=== PATIENT | male | born 1960 | race Caucasian/White ===

== ENCOUNTER 2017-05-24 11:08 | Observation (INO) | payer BC ==
[2017-05-24] VITALS (8 sets, daily range): BP systolic 125–148; BP diastolic 78–96
[2017-05-24 11:28] LABS: BASOPHILS % (AUTO) 1.5 % (0.0-5.0); EOSINOPHILS % (AUTO) 3.4 % (0.0-8.0); MEAN CORPUSCULAR HEMOGLOBIN 31.2 pg (27.0-33.0); MEAN CORPUSCULAR HGB CONC 33.9 g/dL (32.0-36.0); MEAN CORPUSCULAR VOLUME 91.8 fL (79-99); MONOCYTES % (AUTO) 12.7 % (3.0-13.0); NEUTROPHILS % (AUTO) 57.4 % (40.0-77.0); NUCLEATED RED BLOOD CELLS 0.1 % (0.0-0.19); PLATELET COUNT (AUTO) 235 K/uL (130-400); RED BLOOD CELL COUNT(AUTO) 5.33 MIL/uL (4.50-6.20); RED CELL DISTRIBUTION WIDTH 13.6 % (11.0-15.5); WHITE BLOOD COUNT (AUTO) 7.6 K/uL (4.8-10.8)
[2017-05-24 11:39] LABS: CREATININE 1.3 mg/dL (0.5-1.5); POTASSIUM 4.7 mmol/L (3.5-5.1)
[2017-05-24 11:51] LABS: ALBUMIN 4.2 g/dL (3.5-5.0); BILIRUBIN,TOTAL 0.9 mg/dL (0.2-1.0); MAGNESIUM 2.1 mg/dL (1.80-2.40); THYROID STIMULATING HORMONE 3.87 uIU/mL (0.36-3.74); TOTAL PROTEIN, SERUM 7.4 g/dL (6.0-8.3)
[2017-05-24 11:59] LABS: INR 1.02 (0.85-1.15); PARTIAL THROMBOPLASTIN TIME 27.2 SEC (26.3-35.5); PROTHROMBIN TIME 10.7 SEC (9.6-11.6)
[2017-05-24] MEDS ORDERED: MORPHINE SULFATE 4 MG/1ML SYG IV PRN (12:00)
[2017-05-24] MEDS ORDERED: LIDOCAINE HCL-MPF 1% 2ML VIAL IVP PRN (12:00)
[2017-05-24] MEDS ORDERED: POTASSIUM CHLORIDE 20MEQ/100ML 100 ML IV PRN (12:00)
[2017-05-24] MEDS ORDERED: MORPHINE SULFATE 2 MG/ML 1ML SYG IV PRN (12:00)
[2017-05-24] MEDS ORDERED: MAG HYDROX/AL HYDROX/SIMETH ES 30 ML SUSP UDCUP PO PRN (12:00)
[2017-05-24] MEDS ORDERED: POTASSIUM CHLORIDE 10% ELIXIR 20 MEQ/15 ML UDCUP PO PRN (12:00)
[2017-05-24] MEDS ORDERED: POTASSIUM CHLORIDE 20 MEQ ERTAB PO PRN (12:00)
[2017-05-24] MEDS ORDERED: HYDRALAZINE HCL 20 MG/ML VIAL IV PRN (12:00)
[2017-05-24] MEDS ORDERED: LACTULOSE 20 GM/30 ML UDCUP PO PRN (12:00)
[2017-05-24] MEDS ORDERED: ONDANSETRON HCL 4 MG/2 ML VIAL IV PRN (12:00)
[2017-05-24] MEDS ORDERED: GUAIFENESIN-DM 200/20 MG 10 ML PO PRN (12:00)
[2017-05-24] MEDS ORDERED: NITROGLYCERIN 0.4 MG SL TAB SL PRN (12:00)
[2017-05-24] MEDS ORDERED: ACETAMINOPHEN 325 MG TAB PO PRN ×3 (12:00→18:00)
[2017-05-24] MEDS ORDERED: FAMOTIDINE/PF 20 MG/2 ML VIAL IV ONE (12:15)
[2017-05-24] MEDS ORDERED: ASPIRIN 325 MG TABLET ONE (12:55)
[2017-05-24] MEDS ORDERED: ISOVUE-370 50ML VIAL IV ONE ×2 (13:22→15:08)
[2017-05-24] MEDS ORDERED: IOPAMIDOL-370 100 ML VIAL IV ONE (13:22)
[2017-05-24] MEDS ORDERED: NITROGLYCERIN 5 MG/ML 10 ML VIAL IV ONE (13:22)
[2017-05-24] MEDS ORDERED: LIDOCAINE HCL 2% 20ML ONE (13:23)
[2017-05-24 13:40] LABS: CREATINE KINASE MB 1.4 ng/mL (0.5-3.6); TROPONIN I 0.33 ng/mL (0.00-0.06)
[2017-05-24] MEDS ORDERED: SODIUM CHLORIDE 0.9% 1000ML 1,000 ML IV SCH (15:36)
[2017-05-24] MEDS ORDERED: BUPIVACAINE/PF 0.25% 30ML VIAL IJ ONE (16:11)
[2017-05-24] MEDS ORDERED: LIDOCAINE HCL 1% MDV 50ML VIAL ONE (16:11)
[2017-05-24] MEDS ORDERED: CEFAZOLIN 1GM / D5W 50ML 150 ML ONE (16:11)
[2017-05-24] MEDS ORDERED: MEPERIDINE-PF 50 MG/ML SYG ONE (16:15)
[2017-05-24] MEDS ORDERED: MIDAZOLAM HCL 1 MG/ML 2ML VIAL ONE ×2 (16:15→16:57)
[2017-05-24] MEDS ORDERED: ACETAMINOPHEN-CODEINE 300/30MG TAB PO PRN ×2 (18:00)
[2017-05-24] MEDS: FAMOTIDINE/PF 20 MG/2 ML VIAL IV SCH (19:58)
[2017-05-25 04:51] VITALS: BP 135/86
[2017-05-25 05:27] LABS: HEMATOCRIT 41.5 % (42-54); MEAN CORPUSCULAR VOLUME 91.3 fL (79-99); PLATELET COUNT (AUTO) 212 K/uL (130-400); RED BLOOD CELL COUNT(AUTO) 4.55 MIL/uL (4.50-6.20); RED CELL DISTRIBUTION WIDTH 13.5 % (11.0-15.5); WHITE BLOOD COUNT (AUTO) 8.8 K/uL (4.8-10.8)
[2017-05-25 05:39] LABS: CREATININE 1.3 mg/dL (0.5-1.5); POTASSIUM 4.3 mmol/L (3.5-5.1)
[2017-05-25] MEDS: FAMOTIDINE/PF 20 MG/2 ML VIAL IV SCH (07:42)
[2017-05-25 07:51] VITALS: BP 132/89
== END 2017-05-25 11:25 | disposition home or self-care (01) ==
LOC: EDH 11:08 → EDHIP 11:50 → OBSVTOIN 11:50 → INTOOBSV 11:50 → 2AH 13:10
PROVIDERS: ADMIT Internal Medicine; ATTEND Internal Medicine
DX: I44.2 Atrioventricular block, complete (principal); R55 Syncope and collapse; I34.0 Nonrheumatic mitral (valve) insufficiency; I50.31 Acute diastolic (congestive) heart failure; F10.20 Alcohol dependence, uncomplicated; Z82.49 Family history of ischemic heart disease and other diseases of the circulatory system
CPT/HCPCS: 33208; 36415 ×2; 71045 ×2; 80048; 80053; 80061; 82550; 82553; 83735; 83874; 83880; 84443; 84484 ×2; 85025; 85027; 85610; 85730; 93005 ×2; 93308; 93458; 96374; 96376; 99285; C1760; C1785; C1894; C1898 ×2; G0378 ×24; J0690; J1644; J2175; J2250 ×2; J3490 ×7; J7030; Q9967 ×3; 99152; 99153